=== PATIENT | female | born 1990 | race Caucasian/White ===

== ENCOUNTER 2016-11-08 22:54 | Emergency (ER) | payer OTHER ==
[2016-11-08 22:58] VITALS: BMI 36.7
[2016-11-09] MEDS ORDERED: IBUPROFEN 400 MG TABLET (FP) PO ONE ×2 (00:26→00:32)
--- NOTE | 2016-11-09 00:28 | PDOC ---
History of Present Illness - General Chief Complaint: Sore Throat Stated Complaint: COLD SYMPTOMS Time Seen by Provider: 11/08/16 23:24 - History of Present Illness Initial Comments: 11/09/16 00:27 CHIEF COMPLAINT: sore throat, fever HISTORY OF PRESENT ILLNESS: 26 yo F with no PMH presents to ED with fever and sore throat since yesterday. Patient reports sudden onset of fever and throat pain yesterday. She denies any coughing, sneezing, runny nose, or other URI symptoms. She denies nausea, vomiting, diarrhea. No recent travel or sick contacts. PAST MEDICAL HISTORY: Denies past medical history FAMILY HISTORY: Denies SOCIAL HISTORY: Denies tobacco, alcohol, illicit drug use. SURGICAL HISTORY: Denies ALLERGIES: No known drug allergies REVIEW OF SYSTEMS General/Constitutional: Denies fever or chills. Denies weakness, weight change. HEENT: "My throat hurts a lot, I feel like I can't swallow." Denies change in vision. Denies ear pain or discharge. Cardiovascular: Denies chest pain or shortness of breath. Respiratory: Denies cough, wheezing, or hemoptysis. Gastrointestinal: Denies nausea, vomiting, diarrhea or constipation. Genitourinary: Denies dysuria, frequency, or change in urination. Musculoskeletal: Denies joint or muscle swelling or pain. Denies neck or back pain. Skin and breasts: Denies rash or easy bruising. Neurologic: Denies headache, vertigo, loss of consciousness, or loss of sensation. PHYSICAL EXAM General Appearance: Well-appearing, appropriately dressed. No apparent distress. HEENT: Swollen tonsils with exudatebilaterally. EOMI, PERRLA,normal voice, TMs normal. No conjunctival pallor. No photophobia, scleral icterus. Respiratory/Chest: Lungs CTAB. Cardiovascular: RRR. S1, S2. Gastrointestinal/Abdominal: Normal bowel sounds. Abdomen soft, non-distended. No tenderness or rebound tenderness. No organomegaly, pulsatile mass, guarding , hernia, hepatomegaly, splenomegaly. Musculoskeletal/Extremities: Normal inspection. FROM of all extremities, normal capillary refill. No tenderness to extremities, pedal edema, swelling, erythema or deformity. Integumentary: Appropriate color, dry, warm. No cyanosis, erythema, jaundice or rash Neurologic: ends down checker II-XII intact. Fully oriented, alert. Appropriate mood/affect. Motor strength 5/5. No appreciable EOM palsy, facial droop or sensory deficit. 11/09/16 01:28 Past History - Past Medical History Allergies/Adverse Reactions: Allergies Allergy/AdvReac Type Severity Reaction Status Date / Time No Known Allergies Allergy Verified 11/08/16 22:55 Home Medications: Ambulatory Orders Amoxicillin - [Amoxicillin 500mg Capsule -] 500 mg PO BID #20 capsule 11/09/16 Ibuprofen 600 mg PO TID PRN #30 tablet 11/09/16 Asthma: No Cancer: No Cardiac Disorders: No Diabetes: No HTN: No Seizures: No Thyroid Disease: No - Surgical History Cholecystectomy: Yes (stones removed) - Psycho/Social/Smoking Cessation Hx Anxiety: No Suicidal Ideation: No Smoking Status: No Smoking History: Never smoked Have you smoked in the past 12 months: No Number of Cigarettes Smoked Daily: 0 Information on smoking cessation initiated: No Hx Alcohol Use: No Drug/Substance Use Hx: No Hx Substance Use Treatment: No *Physical Exam - Vital Signs Last Vital Signs Temp Pulse Resp BP Pulse Ox 102.4 F H 141 H 14 131/78 97 11/08/16 22:56 11/08/16 22:56 11/08/16 22:56 11/08/16 22:56 11/08/16 22:56 ED Treatment Course - LABORATORY CBC & Chemistry Diagram: 11/09/16 02:30 11/09/16 02:30 Medical Decision Making - Medical Decision Making 11/09/16 02:02 26 yo F with no PMH presents to ED with fever/sore throat since yesterday. -Rapid strep -INfluenza swab -ibuprofen 600 mg Rapi strep and influenza negative. Vital signs - 102.7F temp, 141 HR. Patient reassessed; R tonsil 4+, no uvular deviation but will order soft tissue neck CT r/o [employer]. -CBC, CMP -Unasyn IVPB Labs - unremarkable. -Decadron [address] results: Prominent palatine tonsils, probably tonsillitis. No abscess or focal fluid collection. Unremarkable epiglottis, thyroid gland, and parotid and submandibular glands. Slightly enlarged right jugulodigastric lymph node, probably inflammatory. Mucus retention cyst left maxillary sinus. Read by: Gladys Murray M.D. Patient reassessed; states her throat is feeling much better and less swollen. -500 mg Amoxicillin bid x 10 days, rx sent to pharm Advised patient to take medication as prescribed and follow up with ENT if symptoms persist. Advised patient of signs and symptoms for return to ED. Patient verbalized understanding and agrees to plan. *DC/Admit/Observation/Transfer Diagnosis at time of Disposition: Tonsillitis with exudate - Discharge Dispostion Disposition: HOME Condition at time of disposition: Stable Admit: No - Prescriptions Prescriptions: Amoxicillin - [Amoxicillin 500mg Capsule -] 500 mg PO BID #20 capsule Ibuprofen 600 mg PO TID PRN #30 tablet PRN Reason: Fever - Referrals Referrals: Beau Hodge MD [Staff Physician] - - Patient Instructions Printed Discharge Instructions: DI for Pharyngitis/Tonsillopharyngitis -- Adult Additional Instructions: Please take medication as prescribed. As discussed, please follow-up with ENT if your symptoms do not improve over the next 12 hours. If you experience any difficulty breathing, swallowing, speaking, or any new or worsening symptoms, please return to the ER.
--- NOTE | 2016-11-09 00:45 | PDOC ---
*Physical Exam - Vital Signs Last Vital Signs Temp Pulse Resp BP Pulse Ox 102.4 F H 141 H 14 131/78 97 11/08/16 22:56 11/08/16 22:56 11/08/16 22:56 11/08/16 22:56 11/08/16 22:56 ED Treatment Course - LABORATORY CBC & Chemistry Diagram: 11/09/16 02:30 11/09/16 02:30 - Medications Given in the ED: ED Medications Discontinued Medications Generic Name Dose Route Start Last Admin Trade Name Freq PRN Reason Stop Dose Admin Ibuprofen 800 mg 11/09/16 00:26 11/09/16 00:31 Motrin - PO 11/09/16 00:27 800 mg ONCE ONE Administration Medical Decision Making - Medical Decision Making 11/09/16 00:45 agree with care from BLADIMIR Montague *DC/Admit/Observation/Transfer Diagnosis at time of Disposition: Tonsillitis with exudate - Discharge Dispostion Disposition: HOME Condition at time of disposition: Stable - Prescriptions Prescriptions: Amoxicillin - [Amoxicillin 500mg Capsule -] 500 mg PO BID #20 capsule Ibuprofen 600 mg PO TID PRN #30 tablet PRN Reason: Fever - Referrals Referrals: Beau Hodge MD [Staff Physician] - - Patient Instructions Printed Discharge Instructions: DI for Pharyngitis/Tonsillopharyngitis -- Adult Additional Instructions: Please take medication as prescribed. As discussed, please follow-up with ENT if your symptoms do not improve over the next 12 hours. If you experience any difficulty breathing, swallowing, speaking, or any new or worsening symptoms, please return to the ER.
[2016-11-09] MEDS: AMPICILLIN NA/SULBACTAM NA 3 GM in SODIUM CHLORIDE 100 ML IVPB ONE ×2 (02:43→03:55)
[2016-11-09 02:49] LABS: MCH 28.3 pg (25.7-33.7); MCHC 34.4 g/dl (32.0-36.0); MEAN CELL VOLUME 82.4 fl (80-96); PLATELET COUNT 184 K/MM3 (134-434); RDW 13.8 % (11.6-15.6); WHITE BLOOD COUNT 8.8 K/mm3 (4.0-10.0)
[2016-11-09 03:16] LABS: ALBUMIN 3.7 g/dl (3.4-5.0); ALK PHOS 94 U/L (45-117); ANION GAP 12 (8-16); BILIRUBIN,TOTAL 0.9 mg/dL (0.2-1.0); CALCIUM 8.8 mg/dL (8.5-10.1); CO2 24 mmol/L (21-32); CREATININE 0.6 mg/dL (0.55-1.02); GLUCOSE,RANDOM 105 mg/dL (74-106); SGPT/ALT 67 U/L (12-78); TOT PROT 7.6 g/dl (6.4-8.2)
[2016-11-09 03:18] LABS: SGOT/AST 51 U/L (15-37)
[2016-11-09] MEDS ORDERED: DEXAMETHASONE SOD PHOSPHATE 10 MG/1 ML VIAL IVPUSH ONE (04:34)
[2016-11-09] MEDS ORDERED: DEXAMETHASONE SOD PHOSPHATE 10 MG/1 ML VIAL ONE (04:36)
[2016-11-09 05:24] VITALS: BP 114/78; PULSE 88; TEMP 98.9
== END 2016-11-09 04:51 | disposition home or self-care (01) ==
LOC: JER 22:54
PROC: 3E03329 Introduction of Other Anti-infective into Peripheral Vein, Percutaneous Approach (ICD-10-PCS; principal; 2016-11-08)
PROC: 3E0333Z Introduction of Anti-inflammatory into Peripheral Vein, Percutaneous Approach (ICD-10-PCS; 2016-11-08)
DX: J03.90 Acute tonsillitis, unspecified (principal)
CPT/HCPCS: 36415; 70491-TC; 80053; 83605; 84703; 85027; 87040; 87070; 87430; 87804; 99282-25

== ENCOUNTER 2017-01-03 13:19 | Emergency (ER) | payer OTHER ==
[2017-01-03 13:37] VITALS: TEMP 100.4; BMI 38.3
--- NOTE | 2017-01-03 13:46 | PDOC ---
History of Present Illness <Miko Dash - Last Filed: 01/03/17 17:41> - History of Present Illness Initial Comments: 01/03/17 14:00 The patient is a 26 year old female with no past medical hx who presents to the ED complaining of RUQ abdominal pain for three days. She denies any radiation of pain. The patient reports associated nausea, vomiting, diarrhea, fevers, and headaches. Her fever was a 104 at max. She reports she has been taking Tylenol for her fever with some relief. She states her fever is still persistent. She reports she is unable to tolerate any food. She has been able to keep only water down. She reports multiple episodes of vomiting per day but denies any bile in her vomit. She reports multiple episodes of diarrhea per day. The patient denies any chest pain, SOB The patient denies any dysuria, hematuria The patient denies any melena, hematochezia Surgical: (two), cholecystectomy <Roxann Morris - Last Filed: 01/03/17 18:24> - General Chief Complaint: Pain, Acute Stated Complaint: FEVER/ABD PAIN/UNABLE TO HOLD ANYTHING DOWN Time Seen by Provider: 01/03/17 13:44 Past History - Past Medical History Asthma: No Cancer: No Cardiac Disorders: No Diabetes: No HTN: No Seizures: No Thyroid Disease: No Other medical history: DENIES. - Surgical History Cholecystectomy: Yes - Psycho/Social/Smoking Cessation Hx Anxiety: No Suicidal Ideation: No Smoking Status: No Smoking History: Never smoked Have you smoked in the past 12 months: No Number of Cigarettes Smoked Daily: 0 Hx Alcohol Use: No Drug/Substance Use Hx: No Hx Substance Use Treatment: No <Miko Dash - Last Filed: 01/03/17 17:41> <Roxann Morris - Last Filed: 01/03/17 18:24> - Past Medical History Allergies/Adverse Reactions: Allergies Allergy/AdvReac Type Severity Reaction Status Date / Time No Known Allergies Allergy Verified 01/03/17 13:33 Home Medications: Ambulatory Orders NK [No Known Home Medication] 01/03/17 Review of Systems - Review of Systems Able to Perform ROS?: Yes Comments:: 01/03/17 14:01 GENERAL/CONSTITUTIONAL: +Fever, chills. No weakness. HEAD, EYES, EARS, NOSE AND THROAT: No change in vision. No ear pain or discharge. No sore throat. CARDIOVASCULAR: No chest pain or shortness of breath. RESPIRATORY: No cough, wheezing, or hemoptysis. GASTROINTESTINAL: +Abdominal pain, nausea, vomiting, diarrhea. No constipation, melena, hematochezia. GENITOURINARY: No dysuria, frequency, or change in urination. MUSCULOSKELETAL: No joint or muscle swelling or pain. No neck or back pain. SKIN: No rash NEUROLOGIC: +Headache. No vertigo, loss of consciousness, or change in strength/ sensation. ENDOCRINE: No increased thirst. No abnormal weight change. HEMATOLOGIC/LYMPHATIC: No anemia, easy bleeding, or history of blood clots. ALLERGIC/IMMUNOLOGIC: No hives or skin allergy. <Roxann Morris - Last Filed: 01/03/17 18:24> *Physical Exam - Vital Signs Last Vital Signs Temp Pulse Resp BP Pulse Ox 100.4 F H 116 H 19 123/66 98 01/03/17 13:33 01/03/17 13:33 01/03/17 13:33 01/03/17 13:33 01/03/17 13:33 <Miko Dash - Last Filed: 01/03/17 17:41> - Vital Signs Last Vital Signs Temp Pulse Resp BP Pulse Ox 100.4 F H 116 H 19 123/66 98 01/03/17 13:33 01/03/17 13:33 01/03/17 13:33 01/03/17 13:33 01/03/17 13:33 - Physical Exam Comments: 01/03/17 14:01 GENERAL: Awake, alert, and fully oriented, in no acute distress HEAD: No signs of trauma EYES: PERRLA, EOMI, sclera anicteric, conjunctiva clear ENT: Auricles normal inspection, hearing grossly normal, nares patent, oropharynx clear without exudates. Moist mucosa NECK: Normal ROM, supple, no lymphadenopathy, JVD, or masses LUNGS: Breath sounds equal, clear to auscultation bilaterally. No wheezes, and no crackles HEART: Regular rate and rhythm, normal S1 and S2, no murmurs, rubs or gallops ABDOMEN: +RUQ tenderness to palpation. Soft, normoactive bowel sounds. No guarding, no rebound. No masses EXTREMITIES: Normal range of motion, no edema. No clubbing or cyanosis. No cords, erythema, or tenderness NEUROLOGICAL: Cranial nerves II through XII grossly intact. Normal speech, normal gait SKIN: Warm, Dry, normal turgor, no rashes or lesions noted. <Roxann Morris - Last Filed: 01/03/17 18:24> Heart Score/ECG Review - ECG Impressions Comment:: 01/03/17 15:[address] Dash Impression: Sinus tachycardia at a rate of 103 bpm Normal rate Normal axis Normal EKG <Roxann Morris - Last Filed: 01/03/17 18:24> ED Treatment Course - LABORATORY CBC & Chemistry Diagram: 01/03/17 14:42 01/03/17 14:42 <Miko Dash - Last Filed: 01/03/17 17:41> - LABORATORY CBC & Chemistry Diagram: 01/03/17 14:42 01/03/17 14:42 - RADIOLOGY Radiograph Interpretation: 01/03/17 18:24 RAD/ABDOMEN FLAT UPRIGHT Right upper quadrant pain. Abdomen x ray Two views of the abdomen , supine and upright were obtained. The bowel gas pattern is nonobstructive. No gross organomegaly or free air is seen. There is minimal levoscoliosis of the lumbar spine. Otherwise, the visualized osseous structures appear intact. An intrauterine device is projecting over expected anatomical location of the uterus. There is suggestion of postcholecystectomy surgical metallic clips in the right upper quadrant. Impression: See discussion above. Nonobstructive bowel gas pattern. Correlate clinically to determine further evaluation and follow- up Reported By: Meera Thomas MD 01/03/17 [id number] <Roxann Morris - Last Filed: 01/03/17 18:24> Medical Decision Making - Medical Decision Making 01/03/17 15:18 The patient is a 26 year old female with no past medical hx who presents to the ED complaining of RUQ abdominal pain for three days. The patient reports associated nausea, vomiting, diarrhea, fevers, and headaches. She is unable to keep any food down secondary to her vomiting. She has been able to tolerate water. The plan is to order labs, EKG. <Roxann Morris - Last Filed: 01/03/17 18:24> *DC/Admit/Observation/Transfer - Discharge Dispostion Admit: No - Attestations Physician Attestion: 01/03/17 13:44 I, Dr. Miko Dash, attest that this document has been prepared under my direction and personally reviewed by me in its entirety. I further attest, that it accurately reflects all work, treatment, procedures and medical decision -making performed by me. <Miko Dash - Last Filed: 01/03/17 17:41> - Attestations Scribe Attestion: 01/03/17 14:00 Documentation prepared by Roxann Morris, acting as medical secretary teacher for Miko Dash MD/DO. <Roxann Morris - Last Filed: 01/03/17 18:24> Diagnosis at time of Disposition: Viral syndrome - Discharge Dispostion Disposition: HOME Condition at time of disposition: Good - Referrals Referrals: Jill Jessica MD [Primary Care Provider] - - Patient Instructions Printed Discharge Instructions: DI for Viral Syndrome Additional Instructions: Paulina- Please follow up with your regular doctor tomorrow. All of your tests tonight were essentially normal which means this is a viral syndrome. Tylenol for fever , Clear liquids only, You could have bananas, rice (dry), applesauce, or toast ( jelly only). Best- Miko Gallardo
[2017-01-03] MEDS ORDERED: SODIUM CHLORIDE 1,000 ML IV STA (13:54)
[2017-01-03] MEDS ORDERED: ONDANSETRON 4 MG/2 ML VIAL IVPB ONE (13:54)
[2017-01-03] MEDS ORDERED: KETOROLAC TROMETHAMINE 30 MG/1 ML VIAL IVPUSH ONE (13:54)
[2017-01-03] MEDS ORDERED: ONDANSETRON 4 MG/2 ML VIAL ONE (14:19)
[2017-01-03] MEDS ORDERED: KETOROLAC TROMETHAMINE 30 MG/1 ML VIAL ONE (14:19)
[2017-01-03 15:01] LABS: BASOPHIL 0.3 % (0-2.0); EOSINOPHIL 0.6 % (0-4.5); MCHC 33.7 g/dl (32.0-36.0); MEAN PLT VOLUME 8.8 fl (7.5-11.1); NEUTROPHILS 68.9 % (42.8-82.8); PLATELET COUNT 176 K/MM3 (134-434); RDW 13.7 % (11.6-15.6); WHITE BLOOD COUNT 8.9 K/mm3 (4.0-10.0)
[2017-01-03 15:08] LABS: URINE APPEARANCE CLEAR; URINE BILIRUBIN NEGATIVE (NEGATIVE); URINE COLOR YELLOW; URINE GLUCOSE (UA) NEGATIVE (NEGATIVE); URINE KETONE NEGATIVE (NEGATIVE); URINE LEUK ESTERASE NEGATIVE (NEGATIVE); URINE NITRITE NEGATIVE (NEGATIVE); URINE UROBILINOGEN 2.0 E.U/dl E.U./dl (0.2-1.0)
[2017-01-03 15:09] LABS: URINE BLOOD 3+ (NEGATIVE); URINE PROTEIN 2+ (NEGATIVE)
[2017-01-03] MEDS ORDERED: morphine CARPU-JECT 4 MG/1 ML DISP.SYRIN IVPUSH ONE (15:09)
[2017-01-03 15:19] LABS: URINE MUCUS RARE; URINE RBC 38 /hpf (0-3); URINE WBC 9 /hpf (3-5)
[2017-01-03 15:21] LABS: ALBUMIN 3.8 g/dl (3.4-5.0); ANION GAP 8 (8-16); CALCIUM 8.6 mg/dL (8.5-10.1); CO2 26 mmol/L (21-32); CREATININE 0.5 mg/dL (0.55-1.02); GLUCOSE,RANDOM 86 mg/dL (74-106); SGOT/AST 54 U/L (15-37); SGPT/ALT 58 U/L (12-78)
[2017-01-03] MEDS ORDERED: morphine CARPU-JECT 4 MG/1 ML DISP.SYRIN ONE (15:21)
[2017-01-03 15:22] LABS: ALK PHOS 121 U/L (45-117); TOT PROT 8.3 g/dl (6.4-8.2)
[2017-01-03 18:27] VITALS: BP 121/65; PULSE 100
--- NOTE | 2017-01-04 10:03 | EKG ---
Test Reason : Blood Pressure : / mmHG Vent. Rate : 103 BPM Atrial Rate : 103 BPM P-R Int : 114 ms QRS Dur : 078 ms QT Int : 338 ms P-R-T Axes : 036 037 007 degrees QTc Int : 442 ms SINUS TACHYCARDIA NONSPECIFIC ST ABNORMALITY NO PREVIOUS ECGS AVAILABLE Confirmed by YORDY PITT MD ([id number]) on 01/04/2017 10:02:32 AM Referred By: Confirmed By:YORDY PITT MD
== END 2017-01-03 18:23 | disposition home or self-care (01) ==
LOC: JER 13:19
PROC: 3E033NZ Introduction of Analgesics, Hypnotics, Sedatives into Peripheral Vein, Percutaneous Approach (ICD-10-PCS; principal; 2017-01-03)
PROC: 3E033GC Introduction of Other Therapeutic Substance into Peripheral Vein, Percutaneous Approach (ICD-10-PCS; 2017-01-03)
PROC: 3E033GC Introduction of Other Therapeutic Substance into Peripheral Vein, Percutaneous Approach (ICD-10-PCS; 2017-01-03)
DX: B34.9 Viral infection, unspecified (principal)
CPT/HCPCS: 36415; 74020-TC; 80053; 81003; 81015; 82248; 83690; 84703; 85025; 87086; 87186; 93005; 93010; 99283-25

== ENCOUNTER 2018-01-17 18:01 | Emergency (ER) | payer OTHER ==
[2018-01-17 18:17] VITALS: TEMP 98.6; BMI 34.3
--- NOTE | 2018-01-17 20:14 | PDOC ---
History of Present Illness - General Chief Complaint: Chest Pain Stated Complaint: CHEST PAIN Time Seen by Provider: 01/17/18 19:23 History Source: Patient Exam Limitations: No Limitations - History of Present Illness Initial Comments: 01/17/18 22:02 Best Contact: PCP:None Pmhx:N/A Pshx:: C sections; Lise fox at 9 yo Allergies:NKDA LMP:12/29/2017 27-year-old female presents to the ER complaining of left lateral chest pain 2 days and is described as 3/10 intermittent nonradiating discomfort which is exacerbated on deep inspiration and touch and alleviated at rest. Patient denies headache, dizziness, lightheadedness, nausea/vomiting, fever/chills, facial pains, neck pains, shortness of breath, back pain, abdominal pains, urinary symptoms calf pains, extremity numbness or tingling sensation, . No history of similar symptoms. Patient denies -control use, prolonged sitting recent flight or recent surgery. Past History - Past Medical History Allergies/Adverse Reactions: Allergies Allergy/AdvReac Type Severity Reaction Status Date / Time No Known Allergies Allergy Verified 01/17/18 18:03 Home Medications: Ambulatory Orders NK [No Known Home Medication] 01/03/17 Asthma: No Cancer: No Cardiac Disorders: No COPD: No Diabetes: No HTN: No Seizures: No Thyroid Disease: No - Surgical History Cholecystectomy: Yes - Immunization History Immunization Up to Date: Yes - Suicide/Smoking/Psychosocial Hx Smoking Status: No Smoking History: Never smoked Have you smoked in the past 12 months: No Number of Cigarettes Smoked Daily: 0 Hx Alcohol Use: No Drug/Substance Use Hx: No Hx Substance Use Treatment: No Review of Systems - Review of Systems Able to Perform ROS?: Yes Comments:: 01/17/18 21:57 CONSTITUTIONAL: Absent: fever, chills, diaphoresis, generalized weakness, malaise, loss of appetite HEENT: Absent: rhinorrhea, nasal congestion, throat pain, throat swelling, difficulty swallowing, mouth swelling, ear pain, eye pain, visual Changes CARDIOVASCULAR: +left lat cp Absent: loss of consciousness, palpitations, irregular heart rate, peripheral edema RESPIRATORY: Absent: cough, shortness of breath, dyspnea with exertion, orthopnea, wheezing, stridor, hemoptysis GASTROINTESTINAL: Absent: abdominal pain, abdominal distension, nausea, vomiting, diarrhea, constipation, melena, hematochezia GENITOURINARY: Absent: dysuria, frequency, urgency, hesitancy, hematuria, flank pain, genital pain MUSCULOSKELETAL: Absent: myalgia, arthralgia, joint swelling SKIN: Absent: rash, itching, pallor HEMATOLOGIC/IMMUNOLOGIC: Absent: easy bleeding, easy bruising, lymphadenopathy, frequent infections 01/17/18 21:59 Is the patient limited Romansh proficient: No *Physical Exam - Vital Signs Last Vital Signs Temp Pulse Resp BP Pulse Ox 98.6 F 87 18 142/74 100 01/17/18 18:04 01/17/18 18:04 01/17/18 18:04 01/17/18 18:04 01/17/18 18:04 - Physical Exam Comments: 01/17/18 21:59 GENERAL: Well developed, well nourished. Awake and alert. No acute distress. HEENT: Normocephalic, atraumatic. PERRLA, EOMI. No conjunctival pallor. Sclera are non- icteric. Moist mucous membranes. Oropharynx is clear. NECK: Supple. Full ROM. No JVD. Carotid pulses 2+ and symmetric, without bruits. No thyromegaly. No lymphadenopathy. CARDIOVASCULAR: +Left lat cp on palp Regular rate and rhythm. No murmurs, rubs, or gallops. Distal pulses are 2+ and symmetric. PULMONARY: No evidence of respiratory distress. Lungs clear to auscultation bilaterally. No wheezing, rales or rhonchi. ABDOMINAL: Soft. Non-tender. Non-distended. No rebound or guarding. No organomegaly. Normoactive bowel sounds. MUSCULOSKELETAL Normal range of motion at all joints. No bony deformities or tenderness. No CVA tenderness. EXTREMITIES: No cyanosis. No clubbing. No edema. No calf tenderness. SKIN: Warm and dry. Normal capillary refill. No rashes. No jaundice. NEUROLOGICAL: Alert, awake, appropriate. Cranial nerves 2-12 intact. No deficits to light touch and temperature in face, upper extremities and lower extremities. No motor deficits in the in face, upper extremities and lower extremities. Normoreflexic in the upper and lower extremities. Normal speech. Toes are down- going bilaterally. Gait is normal without ataxia. PSYCHIATRIC: Cooperative. Good eye contact. Appropriate mood and affect. 01/17/18 21:59 ED Treatment Course - LABORATORY CBC & Chemistry Diagram: 01/17/18 20:20 01/17/18 20:20 - ADDITIONAL ORDERS Additional order review: Laboratory Results 01/17/18 20:20 Sodium 140 Potassium 4.0 Chloride 106 Carbon Dioxide 29 Anion Gap 5 L BUN 11 Creatinine 0.4 L Creat Clearance w eGFR > 60 Random Glucose 85 Calcium 8.7 Total Bilirubin 0.5 D AST 16 ALT 20 Alkaline Phosphatase 85 Creatine Kinase 121 Troponin I < 0.02 Total Protein 7.5 Albumin 3.9 01/17/18 20:20 RBC 4.03 MCV 81.8 MCHC 33.9 RDW 14.8 MPV 9.0 Neutrophils % 60.5 Lymphocytes % 29.9 D Monocytes % 7.5 Eosinophils % 1.6 D Basophils % 0.5 *DC/Admit/Observation/Transfer Diagnosis at time of Disposition: Atypical chest pain - Discharge Dispostion Disposition: HOME Condition at time of disposition: Stable Admit: No - Referrals Referrals: Jill Jessica MD [Primary Care Provider] - Salvador Santos MD [Staff Physician] - - Patient Instructions Printed Discharge Instructions: DI for Atypical Chest Pain Additional Instructions: Follow-up with a meat and seafood manager within 2 days Take Tylenol alternating with Motrin as needed for pain Return back to the ER for severe/persistent or worsening symptoms - Post Discharge Activity
[2018-01-17 21:07] LABS: BASO % 0.5 % (0-2.0); EOS % 1.6 % (0-4.5); HEMOGLOBIN 11.2 GM/dL (10.7-15.3); LYMPH % 29.9 % (8-40); MCH 27.8 pg (25.7-33.7); MCHC 33.9 g/dl (32.0-36.0); MEAN CELL VOLUME 81.8 fl (80-96); MONO % 7.5 % (3.8-10.2); NEUT % 60.5 % (42.8-82.8); PLATELET COUNT 212 K/MM3 (134-434); RBC 4.03 M/mm3 (3.60-5.2); RDW 14.8 % (11.6-15.6); WHITE BLOOD COUNT 7.7 K/mm3 (4.0-10.0)
[2018-01-17 21:45] LABS: ALBUMIN 3.9 g/dl (3.4-5.0); ANION GAP 5 (8-16); BILIRUBIN,TOTAL 0.5 mg/dL (0.2-1.0); BLOOD UREA NITROGEN 11 mg/dL (7-18); CALCIUM 8.7 mg/dL (8.5-10.1); CHLORIDE 106 mmol/L (98-107); CO2 29 mmol/L (21-32); CREATININE 0.4 mg/dL (0.55-1.02); GLUCOSE,RANDOM 85 mg/dL (74-106); SGOT/AST 16 U/L (15-37); SGPT/ALT 20 U/L (12-78); SODIUM 140 mmol/L (136-145); TOT PROT 7.5 g/dl (6.4-8.2)
[2018-01-17 21:47] LABS: ALK PHOS 85 U/L (45-117)
[2018-01-17 22:04] VITALS: BP 122/66; PULSE 74
--- NOTE | 2018-01-22 13:12 | EKG ---
Test Reason : Blood Pressure : / mmHG Vent. Rate : 075 BPM Atrial Rate : 075 BPM P-R Int : 118 ms QRS Dur : 086 ms QT Int : 412 ms P-R-T Axes : 040 040 015 degrees QTc Int : 460 ms NORMAL SINUS RHYTHM NORMAL ECG WHEN COMPARED WITH ECG OF 03-JAN-2017 14:54, NO SIGNIFICANT CHANGE WAS FOUND Confirmed by RABIA BARDALES MD ([id number]) on 01/22/2018 1:11:44 PM Referred By: Confirmed By:RABIA BARDALES MD
== END 2018-01-17 22:05 | disposition home or self-care (01) ==
LOC: JER 18:01
DX: R07.89 Other chest pain (principal)
CPT/HCPCS: 36415; 80053; 82550; 84484; 85025; 93005; 93010; 99283-25

== ENCOUNTER 2018-01-19 11:22 | Emergency (ER) | payer OTHER ==
[2018-01-19 11:27] VITALS: TEMP 98.3; BMI 34.3
[2018-01-19] MEDS ORDERED: ACETAMINOPHEN 500 MG TABLET (FP) PO ONE (11:41)
[2018-01-19] MEDS ORDERED: ACETAMINOPHEN 325 MG TABLET (FP) ONE (11:49)
[2018-01-19 11:59] LABS: BASO % 0.4 % (0-2.0); EOS % 1.5 % (0-4.5); HEMATOCRIT 34.4 % (32.4-45.2); HEMOGLOBIN 11.7 GM/dL (10.7-15.3); LYMPH % 26.4 % (8-40); MCH 27.8 pg (25.7-33.7); MEAN CELL VOLUME 81.8 fl (80-96); MEAN PLT VOLUME 8.1 fl (7.5-11.1); MONO % 7.5 % (3.8-10.2); NEUT % 64.2 % (42.8-82.8); PLATELET COUNT 214 K/MM3 (134-434); RDW 14.7 % (11.6-15.6); WHITE BLOOD COUNT 5.9 K/mm3 (4.0-10.0)
[2018-01-19 12:32] LABS: ALBUMIN 3.7 g/dl (3.4-5.0); ANION GAP 10 (8-16); BILIRUBIN,TOTAL 0.7 mg/dL (0.2-1.0); BLOOD UREA NITROGEN 11 mg/dL (7-18); CALCIUM 8.7 mg/dL (8.5-10.1); CHLORIDE 106 mmol/L (98-107); CO2 27 mmol/L (21-32); CREATININE 0.4 mg/dL (0.55-1.02); GLUCOSE,RANDOM 87 mg/dL (74-106); POTASSIUM 4.3 mmol/L (3.5-5.1); SGOT/AST 20 U/L (15-37); SGPT/ALT 23 U/L (12-78); SODIUM 143 mmol/L (136-145); TOT PROT 7.3 g/dl (6.4-8.2)
[2018-01-19 12:35] LABS: ALK PHOS 72 U/L (45-117)
--- NOTE | 2018-01-19 12:50 | PDOC ---
History of Present Illness - General Chief Complaint: Chest Pain Stated Complaint: CHEST PAIN Time Seen by Provider: 01/19/18 11:39 History Source: Patient Exam Limitations: No Limitations - History of Present Illness Initial Comments: 01/19/18 12:00 27-year-old female with left-sided chest pain past 4-5 days that she describes an aching sensation worsened with movement and deep breathing. Patient seen here 2 days ago and had labs and EKG done sent home with recommendations to take Motrin or Tylenol. Patient states all of the pain has subsided slightly with deep breathing the pain continues despite taking Tylenol. Patient denies palpitations, leg swelling, shortness of breath, cough, fever. Timing/Duration: intermittent Severity: moderate Associated Symptoms: reports: chest pain Past History - Travel Traveled outside of the country in the last 30 days: No - Past Medical History Allergies/Adverse Reactions: Allergies Allergy/AdvReac Type Severity Reaction Status Date / Time No Known Allergies Allergy Verified 01/19/18 11:27 Home Medications: Ambulatory Orders NK [No Known Home Medication] 01/03/17 Asthma: No Cancer: No Cardiac Disorders: No COPD: No Diabetes: No HTN: No Seizures: No Thyroid Disease: No - Surgical History Cholecystectomy: Yes - Reproductive History LMP Normal: Yes Is Patient Now?: No - Immunization History Immunization Up to Date: Yes - Suicide/Smoking/Psychosocial Hx Smoking Status: No Smoking History: Never smoked Have you smoked in the past 12 months: No Number of Cigarettes Smoked Daily: 0 Hx Alcohol Use: No Drug/Substance Use Hx: No Hx Substance Use Treatment: No Patient Lives Alone: No Lives with/in: spouse/SO Review of Systems - Review of Systems Able to Perform ROS?: No Constitutional: No: Symptoms Reported HEENTM: No: Symptoms Reported Respiratory: No: Symptoms reported Cardiac (ROS): Yes: Chest Pain ABD/GI: No: Symptoms Reported : No: Symptoms Reported Musculoskeletal: No: Symptoms Reported Integumentary: No: Symptoms Reported Neurological: No: Symptoms reported Hematologic/Lymphatic: No: Symptoms Reported *Physical Exam - Vital Signs Last Vital Signs Temp Pulse Resp BP Pulse Ox 98.3 F 67 18 149/87 98 01/19/18 11:25 01/19/18 11:25 01/19/18 11:25 01/19/18 11:25 01/19/18 11:59 - Physical Exam General Appearance: Yes: Nourished, Appropriately Dressed. No: Apparent Distress HEENT: positive: EOMI, SANDIP. negative: Pale Conjunctivae Neck: positive: Supple Respiratory/Chest: positive: Chest Tender (left sternal border to lmcl at 3-6 rib), Lungs Clear, Normal Breath Sounds. negative: Respiratory Distress, Accessory Muscle Use Cardiovascular: positive: Regular Rhythm, Regular Rate. negative: Murmur Gastrointestinal/Abdominal: positive: Soft. negative: Tenderness Extremity: positive: Normal Capillary Refill. negative: Pedal Edema Integumentary: positive: Normal Color, Warm, Moist Neurologic: positive: Motor Strength 5/5 (ambulatory) Heart Score/ECG Review - History History: Slightly suspicious - Electrocardiogram EKG: Normal - Age Age: </= 45 - Risk Factors Based on the list above the patient has:: No risk factors known - Troponin Troponin: </= normal limit - Score Heart Score - Total: 0 - ECG Intrepretation Rhythm: Regular Rhythm (rate 70. nsr. no st elevation or depression noted) ED Treatment Course - LABORATORY CBC & Chemistry Diagram: 01/19/18 11:55 01/19/18 11:55 - ADDITIONAL ORDERS Additional order review: Laboratory Results 01/19/18 01/19/18 11:55 11:55 D-Dimer 428 Sodium 143 Potassium 4.3 Chloride 106 Carbon Dioxide 27 Anion Gap 10 BUN 11 Creatinine 0.4 L Creat Clearance w eGFR > 60 Random Glucose 87 Calcium 8.7 Total Bilirubin 0.7 D AST 20 ALT 23 Alkaline Phosphatase 72 Creatine Kinase 92 Troponin I < 0.02 Total Protein 7.3 Albumin 3.7 01/19/18 11:55 RBC 4.20 MCV 81.8 MCHC 34.0 RDW 14.7 MPV 8.1 Neutrophils % 64.2 Lymphocytes % 26.4 Monocytes % 7.5 Eosinophils % 1.5 Basophils % 0.4 - RADIOLOGY Radiology Studies Ordered: Category Date Time Status CHEST X-RAY PORTABLE* [RAD] Stat Radiology 01/19/18 11:42 Ordered - Medications Given in the ED: ED Medications Discontinued Medications Generic Name Dose Route Start Last Admin Trade Name Freq PRN Reason Stop Dose Admin Acetaminophen 975 mg 01/19/18 11:41 01/19/18 12:05 Tylenol - PO 01/19/18 11:42 975 mg ONCE ONE Administration Medical Decision Making - Medical Decision Making 01/19/18 12:01 Pt with episodic chest pain 4-5 days. Patient examined a reproducible left- sided chest pain concerning for costochondritis versus musculoskeletal pain. Patient also be ordered for chest x-ray and a d-dimer to rule out PE and pulmonary disorder. Patient was ordered for Tylenol extra strength by mouth here in the ER. 01/19/18 13:44 Laboratory Tests 01/19/18 01/19/18 01/19/18 11:55 11:55 11:55 WBC 5.9 Hgb 11.7 Hct 34.4 Neutrophils % 64.2 D-Dimer 428 Sodium 143 Potassium 4.3 Chloride 106 Carbon Dioxide 27 Anion Gap 10 BUN 11 Creatinine 0.4 L Creat Clearance w eGFR > 60 Random Glucose 87 Calcium 8.7 AST 20 ALT 23 Troponin I < 0.02 chest xray -. Pt states feeling better. discharge home. *DC/Admit/Observation/Transfer Diagnosis at time of Disposition: Costochondritis - Discharge Dispostion Disposition: HOME Condition at time of disposition: Improved - Referrals - Patient Instructions Printed Discharge Instructions: DI for Costochondritis Additional Instructions: Take Tylenol 975 mg every 6-8 hours for the next 3 days then use as needed. May also apply heating pad to be secondary to alleviate discomfort. Also gentle massage may alleviate discomfort also. - Post Discharge Activity
[2018-01-19 13:13] VITALS: BP 107/54; PULSE 75
--- NOTE | 2018-01-19 16:11 | EKG ---
Test Reason : Blood Pressure : / mmHG Vent. Rate : 070 BPM Atrial Rate : 070 BPM P-R Int : 134 ms QRS Dur : 070 ms QT Int : 412 ms P-R-T Axes : 049 044 022 degrees QTc Int : 444 ms NORMAL SINUS RHYTHM NORMAL ECG WHEN COMPARED WITH ECG OF 17-JAN-2018 18:55, NO SIGNIFICANT CHANGE WAS FOUND Confirmed by MD Zhang Daniel ([id number]) on 01/19/2018 4:11:16 PM Referred By: Confirmed By:Scott Zhang MD
== END 2018-01-19 13:56 | disposition home or self-care (01) ==
LOC: JER 11:22
DX: M94.0 Chondrocostal junction syndrome [Tietze] (principal)
CPT/HCPCS: 36415; 71045-TC-FY; 80053; 82550; 84484; 85025; 85379; 93005; 93010; 99284-25